=== PATIENT | female | born 1980 | race Caucasian/White ===

== ENCOUNTER 2018-12-25 13:28 | Emergency (ER) | payer MEDICAID ==
[2018-12-25] MEDS ORDERED: Ketorolac Tromethamine 60 MG/2 ML VIAL ONE (13:48)
[2018-12-25 14:03] LABS: Bilirubin Moderate (Negative); Blood, Urine Large (Negative); Glucose, Urine (Dipstick) Negative (Negative); Leukocyte Negative (Negative); Nitrite Negative (Negative); Protein, Urine (Dipstick) 100 mg/dL (Neg-Trace)
[2018-12-25 14:04] LABS: Bacteria/HPF Rare-Few HPF (None Seen); Clarity Hazy (Clear); RBC/HPF GREATER THAN 50-TNTC HPF (0-3); Squamous Epithelial 0-3 HPF (0-3)
[2018-12-25 14:05] LABS: Pregnancy Test - Urine (BHCG) Negative (Negative); Pregu Control Background? CLEAR/WHITE (CLR/WHITE); Pregu Control Bar Appear? YES (CONTROL BAR); Specific Gravity 1.028 (1.002-1.036)
[2018-12-25 14:51] LABS: #Basophils 0.1 thou/uL (0.0-0.2); #Eosinphils 0.1 thou/uL (0.0-0.7); #Lymphocytes 2.3 thou/uL (1.20-3.40); #Monocytes 0.8 thou/uL (0.11-0.59); #Neutrophils 8.1 thou/uL (1.40-6.50); %Basophils 0.6 % (0.0-1.0); %Eosinophils 0.5 % (0.0-10.0); %Monocytes 7.4 % (0.0-10.0); %Neutrophils 71.6 % (42.0-75.0); Hemoglobin 11.8 g/dL (12.0-16.0); Mean Corpuscular HGB CONC 30.8 g/dL (32.0-36.0); Mean Corpuscular Hemoglobin 27.3 pg (27.0-31.0); Mean Corpuscular Volume 88.7 fL (78.0-98.0); Platelet Count 323 thou/uL (130-400); RBC Distribution Width 14.5 % (11.5-14.5); Red Blood Cell (RBC) Count 4.33 mill/uL (4.20-5.40); White Blood Cell (WBC) Count 11.3 thou/uL (4.8-10.8)
[2018-12-25] MEDS ORDERED: HYDROcodone/Acetaminophen 10/325 mg Tablet ONE (14:57)
--- NOTE | 2018-12-25 15:03 | ULT ---
Pelvic sonogram transabdominal and transvaginal imaging with duplex evaluation HISTORY: Pelvic pain. FINDINGS: Urinary bladder is decompressed. Uterus has a heterogeneous echotexture measuring up to 9.0 cm. Circumscribed heterogeneous hypoechoic mass at the right side of the fundus measures up to 4.0 cm greatest diameter. Endometrium is 0.7 cm. Physiologic amount of free fluid within the cul-de-sac. Right ovary is 2.6 cm in length and the left 2.3 cm. Each contains small follicles and demonstrates g ood color and spectral Doppler flow. IMPRESSION: Prominent right fundal uterine fibroid, 4.0 cm. No significant abnormalities otherwise demonstrated.
== END 2018-12-25 15:12 | disposition home or self-care (01) ==
LOC: NAV ERS 13:28
DX: D25.9 Leiomyoma of uterus, unspecified (principal); F17.210 Nicotine dependence, cigarettes, uncomplicated; F41.9 Anxiety disorder, unspecified
CPT/HCPCS: 76856; 81003; 81015; 81025; 85025; 96372; J1885